=== PATIENT | female | born 1985 | race Caucasian/White ===

== ENCOUNTER 2017-06-29 21:11 | Emergency (ER) | payer BC ==
[~2017-06-29 21:11] MED LIST: FERR325T PO; OXYC1SOL5 PO; PRENCAP6 PO
--- NOTE | 2017-06-29 22:25 | PD ---
HPI Chief Complaint Decreased movement Date Seen: Jun 29, 2017 Time Seen: 22:20 Travel History International Travel<30 Days: No Contact w/Intl Traveler<30Days: No Known Affected Area: No History of Present Illness HPI Patient is 31-year-old white female who is a patient of Dr. Morrell'gisel who presents complaining of decreased movement today, denies bleeding or leakage of fluid or contraction pain. Here on OB ED she has a reactive NST and but since she has been here the baby's been very active according to her Weeks Gestation: 39 Para: 2 : 3 History Obstetric History Obstetric History 2 vaginal deliveries Social History Alcohol Use: No Tobacco Use: No Substance Abuse: No Allergies-Medications (Allergen,Severity, Reaction): Coded Allergies: penicillin G (Unverified Allergy, Severe, Hives, 11/11/16) Home Meds Active Scripts Oxycodone W/ Acetaminophen (Oxycodone/Acetaminophen 5-325 mg/5Ml) 5 mg/325 mg Tab, 1 TAB PO Q4H Y for PAIN SCALE 3 TO 5, #40 TAB Prov:Tico Morrell MD 12/12/15 Reported Medications Ferrous Sulfate (Iron) 325 Mg Tab, 325 MG PO DAILY, TAB 12/10/15 Mv & Min W/Fe Fumarat ( 1) Cap, 1 CAP PO DAILY, CAP 12/10/15 Review of Systems General / Constitutional: No: Fever, Weight Gain, Chills, Other Eyes: No: Diploplia, Blurred Vision, Visual changes, Pain, Photophobia HENT: No: Headaches, Vertigo, Lightheadedness Cardiovascular: No: Irregular Rhythm, Chest Pain or Discomfort, Palpitations, Tachycardia, Syncope, Varicosities, Edema, Cyanosis Respiratory: No: Cough, Short of Breath, Other Gastrointestinal: No: Nausea, Vomiting, Diarrhea Genitourinary: No: Decreased Urinary Output, Oliguria Musculoskeletal: No: Limited ROM, Weakness, Cramping, Edema, Pain Skin: No Rash, No Itching, No Dryness, No Lumps, No Change in Pigmentation, No Change in Nails, No Alopecia, No Lesions Neurologic: No: Weakness, Dizziness, Syncope, Focal Abnormalities, Coordination Problem, Headache, Slurred Speech, Seizures Psychiatric: No: Depression, Suicidal Ideations, Homicidal Ideation Endocrine: No: Heat Intolerance, Cold Intolerance, Polydipsia, Polyuria, Other Physical Exam Narrative GENERAL: Well-nourished, well-developed patient. SKIN: Warm and dry. HEAD: Normocephalic and atraumatic. EYES: No scleral icterus. No injection or drainage. ENT: No nasal drainage noted. Mucous membranes pink. Airway patent. NECK: Supple, trachea midline. No JVD. CARDIOVASCULAR: Regular rate and rhythm without murmurs, gallops, or rubs. RESPIRATORY: Breath sounds equal bilaterally. No accessory muscle use. BREASTS: Bilateral exam showed no masses , no retractions, no nipple discharge. ABDOMEN/GI: Abdomen soft, non-tender, bowel sounds present, no rebound, no guarding Gravid to [39-] weeks size Fundal Height: [39-] GENITOURINARY: External Presentation: [vtx by us-] Membranes: [intact ] Uterine Contractions: [-occasional] FHT's: Category: [-1] Baseline: [133-] Reactive: [R-] Variability: [mod-] Decels: [none-] EXTREMITIES: No cyanosis or edema. BACK: Nontender without obvious deformity. No CVA tenderness. NEUROLOGICAL: Awake and alert. Motor and sensory grossly within normal limits. Five out of 5 muscle strength in all muscle groups. Normal speech. Data Data Labs Bedside ultrasound was done which showed adequate amniotic fluid volume, fetus in a vertex presentation with normal cardiac motion, fundal placenta MDM Interpretation(s) 31-year-old white female at 39 weeks who presents with decreased movement however here on OB ED's the patient has an active fetus with a reactive heart rate tracing and ultrasound shows adequate amniotic fluid volume Plan Plan to discharge patient home to kick count observation in the return for any problems or see Dr. Morrell in the interim Diagnosis Diagnosis: Primary Impression: Decreased movement affecting management of in third trimester Disposition: 01 DISCHARGE HOME Condition: Stable Poli Horta II, MD Jun 29, 2017 22:25
== END 2017-06-29 22:30 | disposition home or self-care (01) ==
LOC: HOBED 21:11
DX: O36.8130 Decreased fetal movements, third trimester, not applicable or unspecified (principal); Z3A.39 39 weeks gestation of pregnancy
CPT/HCPCS: 59025; 76815; 84112

== ENCOUNTER 2017-07-07 06:11 | Inpatient (IN) | payer BC ==
[2017-07-07] VITALS (37 sets, daily range): BP systolic 84–155; BP diastolic 46–124; PULSE 66–126; RESP 18–20; TEMP 98–98.8; O2SAT 96
[2017-07-07] MEDS ORDERED: ONDANSETRON HCL 4 MG/2 ML VIAL IV PUSH PRN (07:45)
[2017-07-07] MEDS ORDERED: NS 500 ML BOLUS IV PRN (07:45)
[2017-07-07] MEDS ORDERED: LIDOCAINE HCL 1% 50 ML VIAL INFIL PRN (07:45)
[2017-07-07] MEDS ORDERED: LIDOCAINE HCL 1% 50 ML VIAL I-DERMAL PRN (07:45)
[2017-07-07] MEDS ORDERED: NS 1000 ML IV PRN (07:45)
[2017-07-07] MEDS ORDERED: OXYTOCIN 30 UNITS 500ML PREMIX IV ONE (07:45)
[2017-07-07] MEDS ORDERED: LACTATED RINGER'S 1000 ML BOLUS IV PRN (07:45)
[2017-07-07] MEDS ORDERED: CITRIC ACID-SODIUM CITRATE LIQ 30 ML UDC PO SCH (07:45)
[2017-07-07] MEDS ORDERED: CLINDAMYCIN 900 MG in NS 100 ML IV SCH (07:45)
[2017-07-07] MEDS ORDERED: MINERAL OIL 10 ML VIAL TOPICAL PRN (07:45)
[2017-07-07] MEDS ORDERED: OXYTOCIN 30 UNITS/NS 500ML PREMIX IV PRN (07:45)
[2017-07-07 07:58] LABS: AUTOMATED NEUTROPHIL # 5.7 TH/MM3 (1.8-7.7); BASOPHIL % 0.2 % (0.0-2.0); EOSINOPHIL # 0.1 TH/MM3 (0-0.4); HEMATOCRIT 34.7 % (35.0-46.0); LYMPH % 25.3 % (9.0-44.0); LYMPHOCYTE # 2.1 TH/MM3 (1.0-4.8); MEAN CELL VOLUME 82.4 FL (80.0-100.0); MEAN CORPUSCULAR HEMOGLOBIN 28.4 PG (27.0-34.0); MEAN CORPUSCULAR HGB CONC 34.5 % (32.0-36.0); MEAN PLATELET VOLUME 8.4 FL (7.0-11.0); MONO % 5.7 % (0.0-8.0); MONOCYTE # 0.5 TH/MM3 (0-0.9); NEUT % 67.8 % (16.0-70.0); PLATELET COUNT 259 TH/MM3 (150-450); RED BLOOD COUNT 4.21 MIL/MM3 (4.00-5.30); WHITE BLOOD COUNT 8.5 TH/MM3 (4.0-11.0)
[2017-07-07 08:05] LABS: BACTERIA, URINE FEW /hpf; BILIRUBIN, URINE NEG (NEG); BLOOD, URINE NEG (NEG); GLUCOSE,URINE NEG (NEG); KETONE, URINE NEG (NEG); MUCUS URINE MANY /lpf (OCC); NITRITE,URINE NEG (NEG); SQUAMOUS EPITHELIAL CELL URINE 50 /hpf (0-5); URINE COLOR YELLOW (YELLW/STRAW); URINE LEUKOCYTE ESTERASE LARGE (NEG)
[2017-07-07] MEDS: CLINDAMYCIN 900 MG/NS PREMIX 50 ML IV SCH (08:35)
[2017-07-07] MEDS: LACTATED RINGER'S 1000 ML IV SCH (08:36)
[2017-07-07] MEDS ORDERED: fentaNYL 2MCG-BUPIV 0.125% INJ 100 ML ONE (11:39)
[2017-07-07] MEDS ORDERED: ePHEDrine/NS 25 MG/5 ML SYRINGE ONE (11:40)
[2017-07-07] MEDS ORDERED: NO SYSTEM NARCOTICS PRN (13:00)
[2017-07-07] MEDS ORDERED: fentaNYL 2MCG-BUPIV 0.125% 100 ML EPIDURAL SCH (13:00)
[2017-07-07] MEDS ORDERED: ePHEDrine/NS 25 MG/5 ML SYRINGE IV PUSH PRN (13:00)
[2017-07-07] MEDS ORDERED: DO NOT ADMINISTER ANTICOAGULANTS PRN (13:00)
[2017-07-07] MEDS ORDERED: WITCH HAZEL 50%/GLYCERIN 12.5% 40 PAD JAR TOPICAL PRN (13:15)
[2017-07-07] MEDS ORDERED: SODIUM CHLORIDE 0.9% FLUSH 10 ML FLUSH IV FLUSH PRN (13:15)
[2017-07-07] MEDS ORDERED: oxyCODONE/ACETAMINOPHEN 5 MG/325 MG TAB PO PRN (13:15)
[2017-07-07] MEDS ORDERED: ALUMINUM/MAGNESIUM/SIMETH 30 ML CUP PO PRN (13:15)
[2017-07-07] MEDS ORDERED: OXYTOCIN 30 UNITS-500ML PREMIX 500 ML IV SCH (13:15)
[2017-07-07] MEDS ORDERED: ACETAMINOPHEN 325 MG TAB PO PRN (13:15)
[2017-07-07] MEDS ORDERED: BENZOCAINE 20% TOPICAL SPRAY 60 ML CAN TOPICAL PRN (13:15)
[2017-07-07] MEDS ORDERED: ONDANSETRON ODT 4 MG TAB PO PRN (13:15)
[2017-07-07] MEDS: IBUPROFEN 800 MG TAB PO PRN ×2 (14:37→22:03)
[2017-07-07] MEDS ORDERED: MEASLES, MUMPS, RUBELLA VACCINE 0.5 ML VIAL SQ ONE (16:00)
[2017-07-07] MEDS ORDERED: DIPHTH/TETANUS/ACEL PERTUSSIS (BOOSTER) 0.5 ML VIAL/PFS IM ONE (16:00)
[2017-07-07] MEDS: oxyCODONE/ACETAMINOPHEN 5 MG/325 MG TAB PO PRN ×3 (17:57→23:18)
[2017-07-07] MEDS ORDERED: ZOLPIDEM TARTRATE 5 MG TAB PO PRN (21:00)
[2017-07-07] MEDS ORDERED: SODIUM CHLORIDE 0.9% FLUSH 10 ML FLUSH IV FLUSH SCH (21:00)
[2017-07-08] MEDS: DOCUSATE SODIUM 50 MG/SENNA 8.6 MG TAB PO PRN ×2 (03:31→20:52)
[2017-07-08] MEDS: oxyCODONE/ACETAMINOPHEN 5 MG/325 MG TAB PO PRN ×3 (03:32→20:51)
[2017-07-08 05:57] LABS: AUTOMATED NEUTROPHIL # 5.6 TH/MM3 (1.8-7.7); BASOPHIL % 0.4 % (0.0-2.0); EOSINOPHIL # 0.2 TH/MM3 (0-0.4); EOSINOPHIL % 2.1 % (0.0-4.0); HEMATOCRIT 31.8 % (35.0-46.0); HEMOGLOBIN 10.8 GM/DL (11.6-15.3); LYMPH % 32.8 % (9.0-44.0); LYMPHOCYTE # 3.4 TH/MM3 (1.0-4.8); MEAN CORPUSCULAR HGB CONC 33.8 % (32.0-36.0); MEAN PLATELET VOLUME 8.3 FL (7.0-11.0); MONO % 9.7 % (0.0-8.0); PLATELET COUNT 215 TH/MM3 (150-450); RED BLOOD COUNT 3.84 MIL/MM3 (4.00-5.30); RED CELL DISTRIBUTION WIDTH 14.3 % (11.6-17.2); WHITE BLOOD COUNT 10.2 TH/MM3 (4.0-11.0)
[2017-07-08] MEDS: IBUPROFEN 800 MG TAB PO PRN ×2 (07:07→17:02)
[2017-07-08] MEDS: LACTATED RINGER'S 1000 ML IV SCH ×3 (08:46→23:45)
[2017-07-08] MEDS: CLINDAMYCIN 900 MG/NS PREMIX 50 ML IV SCH ×2 (08:47→19:00)
[2017-07-08 20:18] VITALS: BP 124/67; PULSE 74; RESP 18; TEMP 98.1
[2017-07-09] MEDS: CLINDAMYCIN 900 MG/NS PREMIX 50 ML IV SCH
[2017-07-09] MEDS: IBUPROFEN 800 MG TAB PO PRN ×2 (01:02→08:49)
[2017-07-09] MEDS ORDERED: OXYC1TAB63 PO (07:11)
--- NOTE | 2017-07-09 07:11 | HHI.DCPOC ---
Discharge Care Plan Report Symptoms to Your Doctor -Temperature above 100.5 degrees -Redness, of incision or excessive or foul smelling drainage -Unusual pain or calf pain -Increased vaginal bleeding -Painful or difficulty urinating -Feelings of extreme sadness or anxiety after 2 weeks Goals to Promote Your Health * To prevent worsening of your condition and complications * To maintain your health at the optimal level Directions to Meet Your Goals Take your medications as prescribed Follow your dietary instruction Follow activity as directed Ensure plenty of rest for recovery Drink fluids for hydration Keep your appointments as scheduled Take your immunizations and boosters as scheduled If your symptoms worsen call your PCP, if no PCP go to Urgent Care Center or Emergency Room Smoking is Dangerous to Your Health. Avoid second hand smoke Call the 24-hour crisis hotline for domestic abuse at Tico Morrell MD Jul 09, 2017 07:11
--- NOTE | 2017-07-09 07:30 | MD ---
cc: Tico Morrell MD DATE OF DISCHARGE: 07/09/2017 ADMITTING DIAGNOSIS: at 40-41 weeks. DISCHARGE DIAGNOSES 1. at 40-41 weeks. 2. Delivered. HISTORY OF PRESENT ILLNESS: The patient is a 31-year-old white female, para 2-0-0-2, LMP of 09/29/2016, EDC of 07/06/2017. Her course was benign. Her labs were normal. Her first TM screen was normal. Her GBS was positive. She progressed to term post-dates and desired induction of labor. She was admitted on 07/07/2017 for Pitocin induction, epidural anesthesia and rapidly progressed to a spontaneous vaginal delivery of a viable vigorous female, 's 9 and 9, weight 7 pounds 12 ounces over a midline episiotomy. She had group B strep prophylaxis. did well. She was discharged home in excellent condition in 07/09/2017. Her pre and post postdelivery labs were normal. She was advised NPV, light activity, return to see me in 6 weeks. She is . She is to call for abnormal pain, bleeding, temperature, signs of infection or depression. She was given prescriptions for Percocet 5 one p.o. every 4 hours p.r.n. pain, number 30. She is to take her vitamins at home. Tico Morrell MD JAW/DL , 07:20 AM , 07:29 AM
[2017-07-09 08:00] VITALS: BP 109/62; PULSE 69; RESP 18; TEMP 98; O2SAT 98
[2017-07-09] MEDS: DOCUSATE SODIUM 50 MG/SENNA 8.6 MG TAB PO PRN (12:09)
[2017-07-09] MEDS: oxyCODONE/ACETAMINOPHEN 5 MG/325 MG TAB PO PRN (12:09)
== END 2017-07-09 13:15 | disposition home or self-care (01) | DRG 775 ==
LOC: H2EA 06:11 → H1EA 15:12
PROVIDERS: ADMIT Obstetrics & Gynecology; ATTEND Obstetrics & Gynecology
PROC: 0W8NXZZ Division of Female Perineum, External Approach (ICD-10-PCS; principal; 2017-07-07)
PROC: 10E0XZZ Delivery of Products of Conception, External Approach (ICD-10-PCS; 2017-07-07)
PROC: 3E033VJ Introduction of Other Hormone into Peripheral Vein, Percutaneous Approach (ICD-10-PCS; 2017-07-07)
PROC: 00HU33Z Insertion of Infusion Device into Spinal Canal, Percutaneous Approach (ICD-10-PCS; 2017-07-07)
PROC: 3E0R3BZ Introduction of Anesthetic Agent into Spinal Canal, Percutaneous Approach (ICD-10-PCS; 2017-07-07)
DX: O48.0 Post-term pregnancy (principal); O99.824 Streptococcus B carrier state complicating childbirth; Z37.0 Single live birth; Z3A.40 40 weeks gestation of pregnancy
CPT/HCPCS: 59025; 80307; 81001; 85025; 86900; 86901; 87086; 90715; G0481; J2590; J7120